=== PATIENT | male | born 1965 | race Caucasian/White ===

== ENCOUNTER 2016-07-12 11:08 | Inpatient (IN) | payer BC ==
[~2016-07-12 11:08] MED LIST: Buffered Lidocaine 1% SYR 3ML* 3 ML/SYR SYRINGE INTRADERM ONE; NS 0.9% 1000 ML* 1,000 ML IV SCH
[2016-07-12] MEDS ORDERED: Buffered Lidocaine 1% SYR 3ML* 3 ML/SYR SYRINGE ONE (11:23)
[2016-07-12] MEDS ORDERED: ceFAZolin 2 GM PREMIX (*) 2 GM/50 ML BAG IVPB ONE (11:23)
[2016-07-12] MEDS ORDERED: fentaNYL* 50 MCG/ML 2 ML VIAL (100 MCG VIAL) ONE ×5 (13:41→18:56)
[2016-07-12] MEDS ORDERED: Midazolam* 1 MG/ML 2 ML VIAL (2 MG) ONE (13:41)
[2016-07-12] MEDS ORDERED: Midazolam* 1 MG/ML 5 ML VIAL (5 MG) ONE (15:28)
[2016-07-12] MEDS ORDERED: Rocuronium* 10 MG/ML VIAL ONE ×2 (15:32→16:27)
[2016-07-12] MEDS ORDERED: Propofol* 10 MG/ML 20 ML BTL IV PUSH ONE (15:42)
[2016-07-12] MEDS ORDERED: Ketorolac INJ* 30 MG/ML 1 ML VIAL ONE (15:42)
[2016-07-12] MEDS ORDERED: Dexamethasone IV* 4 MG/ML 1 ML (4 MG) ONE (15:42)
[2016-07-12] MEDS ORDERED: Lidocaine 2% MPF* 2 ML VIAL ONE (15:42)
[2016-07-12] MEDS ORDERED: Labetalol IV* 5 MG/ML 20 ML VIAL ONE (15:44)
[2016-07-12] MEDS ORDERED: HYDROmorphone INJ* 1 MG/ML CARPUJECT SYRINGE ONE ×4 (15:56→18:56)
[2016-07-12] MEDS ORDERED: Bupivacaine 0.25% EPI 200,000* 30 ML SDV ONE ×2 (16:04→17:02)
[2016-07-12] MEDS ORDERED: Desflurane* 240 ML INH ONE (16:58)
[2016-07-12] MEDS ORDERED: Ondansetron INJ* 2 MG/ML VIAL IV PRN ×2 (16:59→17:10)
[2016-07-12] MEDS ORDERED: Acetaminophen TAB* 325 MG PO PRN ×2 (16:59→17:10)
[2016-07-12] MEDS ORDERED: DiMENhydriNATE IV* 50 MG/ML VIAL IV PUSH PRN (16:59)
[2016-07-12] MEDS ORDERED: PROCHLORPERAZINE INJ 5 MG/ML 2 ML VIAL IV PRN (16:59)
[2016-07-12] MEDS ORDERED: Ondansetron TAB* 4 MG PO PRN (17:10)
[2016-07-12] MEDS ORDERED: diPHENhydraMINE IV* 50 MG/ML 1 ml VIAL (BENADRYL) IV PRN (17:10)
[2016-07-12] MEDS ORDERED: Bisacodyl SUPP* 10 MG SUPP PR PRN (17:10)
[2016-07-12] MEDS ORDERED: oxyCODONE/Acetamin 5/325 MG* TAB PO PRN (17:10)
[2016-07-12] MEDS ORDERED: Polyethylene Glycol 3350* 17 GM PACKET PO PRN (17:10)
[2016-07-12] MEDS: fentaNYL* 50 MCG/ML 2 ML VIAL (100 MCG VIAL) IV PRN ×5 (18:00→19:10)
[2016-07-12] MEDS: HYDROmorphone INJ* 1 MG/ML CARPUJECT SYRINGE IV PRN ×2 (18:01→18:17)
[2016-07-12] MEDS ORDERED: oxyCODONE TAB* 5 MG TAB ONE (18:09)
[2016-07-12] MEDS: oxyCODONE TAB* 5 MG TAB PO PRN ×3 (18:11→22:08)
[2016-07-12] MEDS ORDERED: HYDROmorphone INJ* 1 MG/ML CARPUJECT SYRINGE IV PRN (18:55)
--- NOTE | 2016-07-12 19:12 | RAD ---
Indication: Post LEFT total hip replacement. Comparison: June 30, 2016 Technique: Low AP pelvis and proximal femurs. Report: Noncemented LEFT total hip prosthesis in place with normal alignment in the AP projection. No periprosthetic fracture evident in the AP projection. Surrounding soft tissue edema and subcutaneous emphysema. Unremarkable RIGHT total hip prosthesis in the AP projection. IMPRESSION: Unremarkable immediate postoperative appearance of the LEFT hip post total hip arthroplasty.
[2016-07-12] MEDS: D5W 1/2 NS 1000 ML BAG* 1,000 ML IV SCH (19:47)
[2016-07-12] MEDS ORDERED: Warfarin TAB(*) 10 MG PO ONE (20:00)
[2016-07-12] MEDS: oxyCODONE SR TAB(*) 10 MG TAB.SR PO SCH (20:06)
[2016-07-12] MEDS: Magnesium Hydroxide LIQ* 30 ML UDC PO SCH (20:07)
[2016-07-12] MEDS: Omeprazole CAP* 20 MG PO SCH (20:07)
[2016-07-12] MEDS: Docusate CAP* 100 MG PO SCH (20:07)
[2016-07-12] MEDS: ceFAZolin 1 GM in Dextrose (*) 1 GM/50 ML BAG IVPB SCH (20:07)
--- NOTE | 2016-07-13 01:25 | OP ---
DATE OF OPERATION: 07/12/16 - ROOM #[id number] DATE OF : 61 SURGEON: Petey Quintero MD. CLIENT EXPERIENCE ADMINISTRATOR: Rolanda Cortes RPA. ANESTHESIOLOGIST: Dr. Benitez ANESTHESIA: General. PRE-OP DIAGNOSIS: Osteoarthritis, left hip. POST-OP DIAGNOSIS: Osteoarthritis, left hip. OPERATIVE PROCEDURE: Left total hip arthroplasty. SUMMARY: Mr. Hayden is a 51-year-old male who has been having troubles with both of his hips. One month ago he underwent a right total hip arthroplasty and this had really worked well for him. His left hip was giving the same sort of pain and he was very interested in getting the left hip done as well as he would like to get back to work. Risks of surgery such as infection, scar formation, stiffness, DVT, pulmonary embolism, hardware failure, leg length discrepancy, and instability were some of the risks discussed. He had wished to proceed. ESTIMATED BLOOD LOSS: 150 cc. COMPLICATIONS: None. HARDWARE: Adrianna M/L taper 13.5 Stem 52 mm Continuum cup, -3.5 mm, 36 mm head. DESCRIPTION OF PROCEDURE: The patient was brought to the OR and general endotracheal anesthesia was established. He was then rolled into the right lateral decubitus position. Axillary roll was placed and he was secured to the pegboard. Left hip area was prepped and then draped. Skin over the incisional area was infiltrated using 0.25% Marcaine with epinephrine and a total of 60 cc would be used through the case. Incision was made centered over the greater trochanter and extended proximally and distally for about 8 cm. Incision was carried down through the skin and subcutaneous fat. Small bleeders encountered were ligated using electrocautery. Fascia was exposed and sharply incised. Muscle was bluntly split with finger dissection proximally. Greater trochanteric bursa was immediately evident and was taken down using electrocautery. Sharp Hohmann was placed in the gluteus medius/gluteus minimus and piriformis was clearly evident. Electrocautery was then used to take down piriformis and short external rotators as well as to open the capsule. T- capsulotomy was made and then the hip was easily dislocated. Wear on the femoral head was easily seen. Cutting guide was placed and the femoral neck was marked. Saw was used to resect the femoral head and anterior C-retractor was then used to pull the proximal femur forward. Wide Hohmann was used inferiorly and wide exposure of the acetabulum was obtained. Labrum was taken down sharply and reaming was begun using a 44 reamer. It was deepened a little bit and progressively expanded. He had a 52 on the opposite side and at 51, I seemed to have a nice [id number] fit. A 52 mm cup was called for and impacted into place. Very secure bite was obtained and one screw was placed. Hip was copiously pulse lavaged and trial liner was placed. Attention was returned to the proximal femur. Femoral canal was opened using the box osteotome and the canal finder was easily passed. Beginning with a 5 broach, he was progressively broached. He had a 12.5 on the opposite side and I thought we used the same size. With broaching at the 12.5, however, he countersunk just a little bit and 13.5 was placed. Neck was calcar planed and unfortunately, the neck trials were mislabeled, so we ended up trialing him at first with a reduced neck which was for the 13.5 but it still fit nicely on the 12.5 but still fit on the 13.5. With the 0 head, he seemed to sit quite nicely. Unfortunately when I took this off and double checked the parts, it could be seen that this was the reduced neck for 12.5. With the standard neck and a -3 head, he was a little bit long. A 13.5 was then countersunk just several millimeters, which was about the difference between the reduced neck and the standard neck. Calcar planar was run again and it appeared that he was still seated quite nicely. Motion was quite good as I could flex him up easily , internally rotate, adduct and internally rotate and extend and externally rotate and he was stable throughout. Wound was copiously irrigated using pulse lavage and an elevated liner was impacted into place. Coming back to the femur , 13.[address] and minus head was also impacted into place. Wound was copiously pulse lavaged and the capsule and piriformis and short external rotators were paired together to the posterior aspect of the greater trochanter. Fascia was repaired using interrupted #1 Vicryl sutures. Remainder of the local was given underneath the fascia as well as into the subcutaneous tissues. Subcutaneous tissue was reapproximated using 2-0 Vicryl. Skin was closed using yolette. Sterile dressing was applied. The patient was then rolled on to the hospital bed and is currently being extubated in the OR. He will be stable on transfer to the recovery room. [id number]/[facility] #: [id number] MTDD
[2016-07-13] MEDS: oxyCODONE TAB* 5 MG TAB PO PRN ×6 (02:09→22:01)
[2016-07-13] MEDS: ceFAZolin 1 GM in Dextrose (*) 1 GM/50 ML BAG IVPB SCH ×2 (03:35→11:51)
[2016-07-13] MEDS: Morphine INJ* 10 MG/ML 1 ML CARPUJECT IV PRN ×6 (03:59→22:02)
[2016-07-13 05:51] LABS: Hematocrit 33 % (42-52); Hemoglobin 10.8 g/dl (14.0-18.0)
[2016-07-13 06:08] LABS: BUN/Creatinine Ratio 15.6 (8-20); Calcium 8.8 mg/dL (8.6-10.3); EGFR African American 113.5 (>60); EGFR Non-African American 88.3 (>60); Potassium 4.5 mmol/L (3.5-5.0)
[2016-07-13] MEDS: D5W 1/2 NS 1000 ML BAG* 1,000 ML IV SCH (06:19)
[2016-07-13] MEDS: Lisinopril TAB* 10 MG PO SCH (07:41)
[2016-07-13] MEDS: Omeprazole CAP* 20 MG PO SCH ×2 (07:41→17:04)
[2016-07-13] MEDS: Docusate CAP* 100 MG PO SCH ×2 (07:41→19:58)
[2016-07-13] MEDS: oxyCODONE SR TAB(*) 10 MG TAB.SR PO SCH ×2 (07:42→19:56)
[2016-07-13] MEDS: Magnesium Hydroxide LIQ* 30 ML UDC PO SCH ×2 (07:42→19:58)
--- NOTE | 2016-07-13 08:20 | PN ---
Progress Note - Progress Note SOAP: Subjective: pt resting comfortably with no complaints Objective: Vital Signs Temp Pulse Resp BP Pulse Ox 97.9 F 83 20 185/87 99 07/13/16 07:31 07/13/16 07:31 07/13/16 08:11 07/13/16 07:31 07/13/16 07:31 Laboratory Last Values Hgb 10.8 g/dl (14.0-18.0) L 07/13/16 05:05 Hct 33 % (42-52) L 07/13/16 05:05 INR (Anticoag Therapy) 0.98 (0.89-1.11) 07/13/16 05:05 Sodium 135 mmol/L (133-145) 07/13/16 05:05 Potassium 4.5 mmol/L (3.5-5.0) 07/13/16 05:05 Chloride 105 mmol/L (101-111) 07/13/16 05:05 Carbon Dioxide 25 mmol/L (22-32) 07/13/16 05:05 Anion Gap 5 mmol/L (2-11) 07/13/16 05:05 BUN 14 mg/dL (6-24) 07/13/16 05:05 Creatinine 0.90 mg/dL (0.67-1.17) 07/13/16 05:05 Est GFR ( Amer) 113.5 (>60) 07/13/16 05:05 Est GFR (Non-Af Amer) 88.3 (>60) 07/13/16 05:05 BUN/Creatinine Ratio 15.6 (8-20) 07/13/16 05:05 Glucose 142 mg/dL (70-100) H 07/13/16 05:05 Calcium 8.8 mg/dL (8.6-10.3) 07/13/16 05:05 incision: c/d; dressing changed Assessment: s/p left SANCHEZ Plan: 1) continue PT/OT 2) Continue Abx for 24 hours post-op 3) Heparin/ coumadin for DVT prophylaxis
[2016-07-13] MEDS: BuPROPion XL* 300 MG TAB.XL PO SCH (08:35)
[2016-07-13] MEDS ORDERED: Escitalopram (NF) 10 MG TAB PO SCH (09:00)
[2016-07-13] MEDS: Citalopram TAB* 20 MG PO SCH (10:08)
[2016-07-13] MEDS ORDERED: Warfarin TAB(*) 4 MG PO ONE (17:00)
[2016-07-13] MEDS: oxyCODONE/Acetamin 5/325 MG* TAB PO PRN (19:57)
[2016-07-13] MEDS: Heparin VIAL(*) 5000 UNITS/ML VIAL (FIVE THOUSAND) SUBCUT SCH (20:02)
[2016-07-14] MEDS: oxyCODONE/Acetamin 5/325 MG* TAB PO PRN ×2 (04:06→08:58)
[2016-07-14] MEDS: oxyCODONE TAB* 5 MG TAB PO PRN ×2 (05:45→12:43)
[2016-07-14 06:32] LABS: Hematocrit 32 % (42-52); Hemoglobin 10.7 g/dl (14.0-18.0)
[2016-07-14] MEDS: Omeprazole CAP* 20 MG PO SCH (07:04)
[2016-07-14] MEDS: Morphine INJ* 10 MG/ML 1 ML CARPUJECT IV PRN (07:07)
[2016-07-14] MEDS: Magnesium Hydroxide LIQ* 30 ML UDC PO SCH (08:57)
[2016-07-14] MEDS: Lisinopril TAB* 10 MG PO SCH (08:58)
[2016-07-14] MEDS: oxyCODONE SR TAB(*) 10 MG TAB.SR PO SCH (08:58)
[2016-07-14] MEDS: BuPROPion XL* 300 MG TAB.XL PO SCH (08:58)
[2016-07-14] MEDS: Docusate CAP* 100 MG PO SCH (08:58)
[2016-07-14] MEDS: Citalopram TAB* 20 MG PO SCH (08:59)
[2016-07-14] MEDS: Heparin VIAL(*) 5000 UNITS/ML VIAL (FIVE THOUSAND) SUBCUT SCH (09:00)
[2016-07-14 11:41] VITALS: BP 131/59
[2016-07-14] MEDS ORDERED: Warfarin TAB(*) 7.5 MG PO ONE (17:00)
--- NOTE | 2016-10-26 16:26 | DS ---
DISCHARGE SUMMARY: DATE OF ADMISSION: 07/12/16 DATE OF DISCHARGE: 07/14/16 ATTENDING: Petey Quintero MD PRINCIPAL DIAGNOSIS: Osteoarthritis, left hip. PRINCIPAL PROCEDURE DONE: Left total hip arthroplasty. COMPLICATIONS: None. SUMMARY: Mr. Hayden is a 51-year-old male who had been having troubles with both of his hips. One month prior to this admission, he underwent a right total hip arthroplasty and initially had some troubles with pain, but he had progressed and was very pleased in how the right hip had been feeling. At his first followup in the office, he was very interested in getting his left hip set up and we set up this admission for a left total hip arthroplasty. Risks of surgery such as infection, scar formation, stiffness, DVT, pulmonary embolism , hardware failure, leg length discrepancy and instability were some of the risks discussed and he had wished to proceed. COURSE: The patient was admitted on the and underwent a left total hip arthroplasty. He tolerated the procedure well with no complications. Postoperatively, he did not have any of the pain that he had when we had the right hip done, where he had an odd leg and muscle sort of pain. He was able to stand and walk the next day with physical therapy and had really done well. On the morning of day 2, again he was doing well and was very interested in going home. He again did well with physical therapy and was declared safe to go home. His dressing was changed and wound was benign with no drainage and no erythema. There was no ecchymosis about the wound either. He was discharged on the , awake, alert, and oriented, and happy to be going home. He still knew his dislocation precautions from his previous admission and was set up on warfarin 7.5 mg daily. We will monitor his PT/INR on Mondays and and adjust his Coumadin dose as necessary. He should continue with the exercises that he learned with PT as he is clearly doing quite well. If there are any problems, there are instructions to give the office a call, otherwise his yolette will be removed by the visiting nurse service in approximately 10 days and he should continue to progress. If there are any problems or anything odd should occur, there are instructions to give the office a call. [id number]/[facility] #: [id number] [facility] SYSTEMSarah
== END 2016-07-14 12:50 | disposition home or self-care (01) | DRG 301 ==
LOC: AA 11:08 → SSU 19:31
PROVIDERS: ADMIT Orthopaedic Surgery; ATTEND Orthopaedic Surgery
PROC: 0SRB02A Replacement of Left Hip Joint with Metal on Polyethylene Synthetic Substitute, Uncemented, Open Approach (ICD-10-PCS; principal; 2016-07-12 13:30)
DX: M16.12 Unilateral primary osteoarthritis, left hip (principal); Z96.641 Presence of right artificial hip joint; I10 Essential (primary) hypertension; K21.9 Gastro-esophageal reflux disease without esophagitis; F32.9 Major depressive disorder, single episode, unspecified; F41.9 Anxiety disorder, unspecified; M19.012 Primary osteoarthritis, left shoulder; M19.011 Primary osteoarthritis, right shoulder; E53.8 Deficiency of other specified B group vitamins; Z72.89 Other problems related to lifestyle
CPT/HCPCS: 36415; 72170; 80048; 85014; 85018; 85610; 88304; 88311; 94760; A9270-GY; C1713; C1776; J0690; J1100; J1170; J1644; J1885; J2250; J2270; J2704; J3010